=== PATIENT | male | born 2000 | race Caucasian/White ===

== ENCOUNTER 2024-02-01 07:19 | Outpatient (OUT) | payer OTHER, SELFPAY ==
--- NOTE | 2024-02-01 | XR_ITS ---
The [address] [address] Patient Name: TANYA PEDRO MRN: [id number] date: 2000 Sex: M Assigned Patient Location: Current Patient Location: Accession/Order Number: [id number] Exam Date: 02/01/2024 07:33 Report Date: 02/01/2024 08:30 At the request of: DONNA MONET Procedure: XR elbow LT min 3V PROCEDURE: XR elbow LT min 3V COMPARISON: None. HISTORY: LEFT ELBOW PAIN FINDINGS: BONES:No fracture, acute abnormality, or significant arthropathy. SOFT TISSUES:Negative. No visible soft tissue swelling. EFFUSION:None visible. OTHER: Negative. XR/XR elbow LT min 3V IMPRESSION: No acute radiographic abnormality Electronically authenticated by: DAWSON RIOZ Date: 02/01/2024 08:30
== END 2024-02-01 07:20 | disposition home or self-care (01) ==
LOC: EC 07:28
PROVIDERS: PCP Orthopaedic Surgery; Visit Provider Orthopaedic Surgery
DX: M25.522 Pain in left elbow (principal)
CPT/HCPCS: 73080